=== PATIENT | female | born 1965 | race Caucasian/White ===

== ENCOUNTER 2025-10-12 07:30 | Emergency (ER) | payer OTHER, MEDICARE ==
[~2025-10-12] VITALS: Ht 170.2 cm; Wt 140.9 kg
[2025-10-12] MEDS ORDERED: ACETAMINOPHEN500 MG PO (07:42)
[2025-10-12] MEDS ORDERED: VITAMIN D250 MC1 PO (07:42)
[2025-10-12] MEDS ORDERED: VENTOLIN HFA18 GM INH (07:43)
[2025-10-12] MEDS ORDERED: CENTRUM ADULTS12 MCG PO (07:43)
[2025-10-12] MEDS ORDERED: SINGULAIR10 MG PO (07:43)
[2025-10-12] MEDS ORDERED: WIXELA 500-501 EACH INH (07:44)
[2025-10-12] MEDS ORDERED: AZELASTINE137 MCG/0. NAS (07:44)
[2025-10-12] MEDS ORDERED: PULMICORT0.5 MG/2 M INH (07:45)
[2025-10-12] MEDS ORDERED: NASACORT10.8 ML NAS (07:45)
[2025-10-12] MEDS ORDERED: POTASSIUM CITR10 ME1 PO (07:46)
[2025-10-12] MEDS ORDERED: INSULIN GL300 UNIT/2 (07:46)
[2025-10-12] MEDS ORDERED: JANUVIA100 MG PO (07:46)
[2025-10-12] MEDS ORDERED: METFORMIN HCL500 MG PO (07:47)
[2025-10-12] MEDS ORDERED: GLIMEPIRIDE4 MG PO (07:47)
[2025-10-12] MEDS ORDERED: LASIX20 MG PO (07:48)
[2025-10-12] MEDS ORDERED: EFFIENT10 MG PO (07:48)
[2025-10-12] MEDS ORDERED: DILT-XR240 MG PO (07:48)
[2025-10-12] MEDS ORDERED: LIPITOR80 MG GT (07:49)
[2025-10-12] MEDS ORDERED: BAYER CHEWABLE81 MG PO (07:49)
[2025-10-12] MEDS ORDERED: LOSARTAN POTAS100 MG PO (07:49)
[2025-10-12 07:54] LABS: BASOPHILS 0.4 % (0.1-1.2); EOSINOPHILS 1.0 % (0.7-5.8); LYMPHOCYTES 19.6 % (19.3-51.7); MCH 27.7 PG (25.6-32.2); MCHC 32.7 g/dL (32.2-35.5); MCV 84.5 fL (79.4-94.8); MONOCYTES 4.8 % (4.7-12.5); NEUTROPHILS 72.9 % (34.0-71.1); RBC 4.66 M/uL (3.93-5.22)
[2025-10-12 08:04] LABS: ALT (SGPT) 71.0 U/L (14-59); AST (SGOT) 54.0 U/L (15-37); GLOMERULAR FILTRATION RATE,EST 62.0 mL/min (>60); PROTEIN, TOTAL 7.6 g/dL (6.4-8.2); UREA NITROGEN 22.0 mg/dL (7-18)
[2025-10-12] MEDS ORDERED: HYDROmorphone HCL 1 MG/ML SYR IV PRN (09:00)
[2025-10-12] MEDS ORDERED: ONDANSETRON ODT4 MG PO (09:16)
[2025-10-12] MEDS ORDERED: HYDROCODON-ACE1 EAC8 PO (09:16)
[2025-10-12 09:30] VITALS: BP 160/50
--- NOTE | 2025-10-12 11:22 | EKG ---
[facility] [address] [place] [address] Signed Normal sinus rhythm Left anterior fascicular block Moderate voltage criteria for LVH, may be normal variant ( R in aVL , Will product ) Abnormal ECG No previous ECGs available Confirmed by Kory Lara DO ([id number]) on 10/12/2025 11:21:50 AM Electronically Signed By: KORY LARA DO 10/12/25 112 PATIENT NAME: BETHANY MANLEY Electrocardiogram DATE OF : 65 PHYSICIAN: KORY LARA DO REPORT #: [id number] REPORT IS CONFIDENTIAL AND NOT TO BE RELEASED WITHOUT AUTHORIZATION
== END 2025-10-12 09:30 | disposition home or self-care (01) ==
LOC: ED 07:30
PROVIDERS: Emergency Medicine
DX: S22.32XA Fracture of one rib, left side, initial encounter for closed fracture (principal); I10 Essential (primary) hypertension; E11.9 Type 2 diabetes mellitus without complications; J45.909 Unspecified asthma, uncomplicated; V89.2XXA Person injured in unspecified motor-vehicle accident, traffic, initial encounter
CPT/HCPCS: 36415; 71260; 74177; 80053; 85025; 93005; 93010; 96374; 96375; 99284-25; J1171; J2405; Q9967